=== PATIENT | male | born 1940 | race Caucasian/White ===

== ENCOUNTER 2024-04-27 06:14 | Day surgery (SDC) | payer OTHER, SELFPAY ==
--- NOTE | 2024-04-23 14:08 | PTCARENOTE ---
Patients 5/6 EKG abnormal- reviwed by Dr. Hills- no additional interventions required
[2024-04-27] VITALS (8 sets, daily range): BP systolic 127–175; BP diastolic 56–76; BMI 25.1
[2024-04-27] MEDS: TYLENOL 1000 MG PO (08:05)
[2024-04-27] MEDS: NORMOSOL-R 1000 IV (08:05)
--- NOTE | 2024-04-27 08:40 | W.SUR.PREOP ---
Pre-Operative Surgical Note
-
I have examined this patient prior to the performance of the scheduled procedure.
The patient's condition is unchanged from the time of the current History and
Physical and the patient is able to undergo the scheduled procedure.
--- NOTE | 2024-04-27 11:01 | W.IMMPOSTOP ---
Addendum entered and electronically signed by Robbin Valenzuela MD 04/27/24 14:53:
#[id number]
Original Note:
Surgical Immed Post Op Note
-
Primary Surgeon: Nicolas
Assisting Surgeon: Alfonzo Renee
Pre-op Diagnosis: RIH
Post-op Diagnosis: RIH - indirect
Procedure Performed: Lap TEP RIH repair with mesh - 3D max large
Anesthesia Type: GETA +0.25% Marcaine
Specimen / Cultures: None
Estimated Blood Loss: 14 mL
Complications: None immediate
Operative Findings: Large/moderate size right indirect inguinal hernia. Direct and femoral spaces normal. Scarring within preperitoneal location related to previous history of laparotomy extending typical operative time. No peritoneal entry
visualized with dissection. 3D max large mid weight mesh repair.
[2024-04-27] MEDS: MOTRIN 600 MG PO (12:34)
== END 2024-04-27 13:15 | disposition home or self-care (01) ==
LOC: SDS 06:14
PROVIDERS: ATTENDING PHYSICIAN Surgery
DX: K40.90 Unilateral inguinal hernia, without obstruction or gangrene, not specified as recurrent (principal)
CPT/HCPCS: 49505; C1781

== ENCOUNTER 2024-05-07 11:27 | Emergency (ER) | payer OTHER, SELFPAY ==
[2024-05-07 11:37] VITALS: BP 141/79
[2024-05-07 11:51] LABS: Urine Albumin 2+ (Neg - Trace); Urine Bilirubin Negative (Negative); Urine Character Clear (Clear); Urine Color Yellow; Urine Glucose Negative (Negative); Urine Ketone Negative (Negative); Urine Leukocyte 2+ (Negative); Urine Nitrite Negative (Negative); Urine Occult Blood 4+ (Negative); Urine Urobilinogen Negative (Neg - 1+)
[2024-05-07 11:58] VITALS: BMI 26.7
[2024-05-07 11:59] LABS: Urine Bacteria Few (Negative); Urine Red Blood Cell 30-40 /HPF (0-2); Urine Squamous Cell 0-2 /LPF (Few)
--- NOTE | 2024-05-07 12:33 | ED.GENMED ---
History of Present Illness
<Magy Copeland PA-C - Last Filed: 05/07/24 19:06>
General
Chief Complaint: Male Genito-Urinary Symptoms
Source: patient
Exam Limitations: none
Time Seen by Provider: 05/07/24 11:45
Nursing documentation reviewed up to this point in time: agreed with
History of Present Illness
History of Present Illness:
Patient is an 84-year-old male with history of hypertension, hyperlipidemia presenting to the emergency department 10 days postop from right inguinal hernia repair with Dr. Valenzuela for evaluation of hematuria and urinary frequency. Patient states
that he had been recovering well from surgery until yesterday evening he noticed urinary frequency and hematuria. Patient did speak with Dr. Valenzuela this morning who recommended that he come to the emergency department for evaluation. Patient
denies any fever, chills, dysuria, or abdominal pain. Patient states he is having normal bowel movements denies any blood in his stool. Patient denies any lightheadedness, dizziness. Patient states he overall feels well.
Patient is on any blood thinners. He has postop follow-up scheduled with Dr. Valenzuela on 05/16
Review of Systems
<Magy Copeland PA-C - Last Filed: 05/07/24 19:06>
Review of Systems
Allergies reviewed?: Yes
All Other Systems: ROS reviewed and negative except as documented in HPI and ROS
Phy Exam
<Magy Copeland PA-C - Last Filed: 05/07/24 19:06>
Physical Exam
Physical Exam:
Vitals: Patient's vital signs are stable. Afebrile
General: Patient is well appearing, no acute distress
Skin: Warm and dry, no rashes or lesions
Head: Normocephalic, atraumatic
Eyes: Sclera nonicteric. EOMs intact. No nystagmus.
Throat: Protecting airway
Neck: Normal ROM, no cervical spine tenderness, no meningismus
Cardiac: Regular rate and rhythm, no murmurs.
Pulm: Normal respiratory effort, no wheezes, rales, rhonchi heard on exam.
Abdomen: Abdomen soft. No abdominal tenderness. Few well-healing surgical port sites without any surrounding erythema or drainage.
: Ecchymoses noted to scrotum without any tenderness. No obvious lacerations or bleeding from urethral meatus
Extremities: No evidence of cyanosis or edema. Great distal pulses
Neuro: AAOx3. CN II-XII intact. No focal neurologic deficits.
Psychiatric: Normal affect.
Course
<Magy Copeland PA-C - Last Filed: 05/07/24 19:06>
Orders/Labs/Results
Orders:
Orders
05/07/24 11:37
Urinalysis Reflex To Culture Urgent
Date Specimen was Collected: 05/07/24
Time Specimen was Collected: 11:31
Urine Microscopic Reflex Cult Urgent
Urine Culture Urgent
NAJMA Source: U
Specimen Description:
Date Specimen was Collected: 05/07/24
Time Specimen was Collected: 11:31
05/07/24 12:34
Bladder Scan- Treatment ONCE
05/07/24 12:52
Complete Blood Count/With Diff Urgent
Comprehensive Metabolic Panel Urgent
05/07/24 13:47
Cefdinir [Omnicef] 300 mg PO NOW STA
Abnormal Lab Results
05/07/24 05/07/24
11:37 12:52
WBC 13.8 H 10^3/uL
(4.8-10.8)
Abs Immat Gran (auto) 0.1 H 10^3/uL
(0-0.05)
Absolute Neuts (auto) 10.4 H 10^3/uL
(1.4-6.5)
Absolute Monos (auto) 1.3 H 10^3/uL
(0.1-0.6)
Lymphocytes % 14.1 L %
(20.5-51.1)
Glucose 103 H mg/dl
(70-99)
Ur Occult Blood Reflex 4+ A
(Negative)
Leukocyte Esterase Rfl 2+ A
(Negative)
Urine RBC 30-40 A /HPF
(0-2)
Urine Bacteria (Reflex) Few A
(Negative)
Urine Albumin (Reflex) 2+ A
(Neg - Trace)
05/07/24 12:52
05/07/24 12:52
Vital Signs
Initial and Last Documented VS:
Initial Vital Signs
Temp Pulse Resp BP Pulse Ox
98.7 F 85 18 141/79 94
05/07/24 11:37 05/07/24 11:37 05/07/24 11:37 05/07/24 11:37 05/07/24 11:37
Last Documented Vital Signs
Temp Pulse Resp BP Pulse Ox
97.6 F 86 15 120/75 99
05/07/24 14:41 05/07/24 14:41 05/07/24 14:41 05/07/24 14:41 05/07/24 14:41
<Con Monroe, DO - Last Filed: 05/07/24 13:46>
Orders/Labs/Results
Orders:
Orders
05/07/24 11:37
Urinalysis Reflex To Culture Urgent
Date Specimen was Collected: 05/07/24
Time Specimen was Collected: 11:31
Urine Microscopic Reflex Cult Urgent
Urine Culture Urgent
NAJMA Source: U
Specimen Description:
Date Specimen was Collected: 05/07/24
Time Specimen was Collected: 11:31
05/07/24 12:34
Bladder Scan- Treatment ONCE
05/07/24 12:52
Complete Blood Count/With Diff Urgent
Comprehensive Metabolic Panel Urgent
05/07/24 13:47
Cefdinir [Omnicef] 300 mg PO NOW STA
Abnormal Lab Results
05/07/24 05/07/24
11:37 12:52
WBC 13.8 H 10^3/uL
(4.8-10.8)
Abs Immat Gran (auto) 0.1 H 10^3/uL
(0-0.05)
Absolute Neuts (auto) 10.4 H 10^3/uL
(1.4-6.5)
Absolute Monos (auto) 1.3 H 10^3/uL
(0.1-0.6)
Lymphocytes % 14.1 L %
(20.5-51.1)
Glucose 103 H mg/dl
(70-99)
Ur Occult Blood Reflex 4+ A
(Negative)
Leukocyte Esterase Rfl 2+ A
(Negative)
Urine RBC 30-40 A /HPF
(0-2)
Urine Bacteria (Reflex) Few A
(Negative)
Urine Albumin (Reflex) 2+ A
(Neg - Trace)
05/07/24 12:52
05/07/24 12:52
Vital Signs
Initial and Last Documented VS:
Initial Vital Signs
Temp Pulse Resp BP Pulse Ox
98.7 F 85 18 141/79 94
05/07/24 11:37 05/07/24 11:37 05/07/24 11:37 05/07/24 11:37 05/07/24 11:37
Last Documented Vital Signs
Temp Pulse Resp BP Pulse Ox
97.6 F 86 15 120/75 99
05/07/24 14:41 05/07/24 14:41 05/07/24 14:41 05/07/24 14:41 05/07/24 14:41
<Magy Copeland PA-C - Last Filed: 05/07/24 19:06>
MDM/Problems Addressed
Differential Diagnosis Includes:
Not limited to: Urinary retention, UTI, normal postoperative complication
MDM/Problems Addressed:
84-year-old male postop day 10 from right laparoscopic inguinal hernia repair presents to emergency department with urinary frequency and hematuria. No fever, chills, abdominal pain. Surgery performed laparoscopically with Dr. Valenzuela. Patient
was recovering well until yesterday noticed urinary frequency and hematuria�spoke with Dr. Valenzuela who recommended ER evaluation to rule out urinary retention/UTI. Patient is hypertensive, otherwise vital signs stable on arrival. Physical exam as
above. Patient is nontoxic-appearing. Abdomen is soft and nontender with well-healing port sites without any signs of infection. No signs of active bleeding from urethral meatus or lacerations. Ecchymosis noted to scrotum although nontender and
are improving per patient. Bladder scanned was performed by nurse which showed no urinary retention. Labs were obtained which are notable for mild leukocytosis of 13.8, otherwise no clinically significant abnormalities. Urinalysis is somewhat
equivocal for UTI positive for blood and leukocyte esterase although not many WBCs. Urine culture will be sent.
Did discuss with Dr. Valenzuela, general surgeon. Given patient's mild leukocytosis and urinary frequency�will start patient on course of oral antibiotics for suspected UTI. Will send prescription for Flomax, as well. First dose given in emergency
department today. Patient does have a follow-up scheduled for early May with his urologist which she will keep and follow-up with.
Dr. Valenzuela was down to evaluate patient at bedside. He agrees with plan. Patient will be discharged with close return precautions, general surgery/urology follow-up.
Chronic conditions affecting care:
Hypertension
Acute Exacerbation and/or Progression of Chronic Illness:
Acute hypertensive
<Magy Copeland PA-C - Last Filed: 05/07/24 19:06>
*Pulse Oximetry
Patient hypoxic: no
*EKG
Interpreted by ED Provider?: NA
*Manager Steel Interpretation
Rate: Manager Steel- N/A
*Critical Care Note
Total Time (30-74mins, 75-104mins- exclusive of procedures): Not Applicable
ED Attending Note
<Magy Copeland PA-C - Last Filed: 05/07/24 19:06>
-
Portions of this chart may have been created with voice recognition software.� Occasional wrong word or��sound alike� substitutions may have occurred due to the inherent limitations of voice recognition software.
<Con Monroe DO - Last Filed: 05/07/24 13:46>
ED Attending Note
Patient seen and examined by attending physician: Yes
I performed the substantive portion of visit, reviewed & personally made and approve the management plan that is documented in note by myself or SANDHYA.: Yes
ED Attending Note:
seen with Pa, agree with a/p, non toxic male, urinary frequency, not retaining
Discharge Plan
Departure
Patient Disposition: Home (Routine Discharge)
Date of Disposition: 05/07/24
Time of Disposition: 14:37
Patient with high blood pressure during this ER visit?: No
Condition: Good
Covid-19: Not Applicable
Discharge Problem:
Acute UTI, Hematuria
Instructions: Urinary Tract Infection, Adult ED, Blood in Urine (Hematuria), Adult ED
Prescriptions:
New
cefdinir 300 mg capsule
300 mg PO BID 7 Days Qty: 14 0RF
tamsulosin [Flomax] 0.4 mg capsule
0.4 mg PO DAILY Qty: 14 0RF
No Action
aspirin 81 MG tablet,delayed release (DR/EC)
81 mg PO DAILY
zinc gluconate 30 MG tablet
30 - 50 mg PO DAILY
levothyroxine [Synthroid] 50 MCG tablet
50 mcg PO DAILY
calcium polycarbophil [Fiber-Tabs] 625 MG tablet
2 tab PO DAILY
omeprazole 20 MG capsule,delayed release(DR/EC)
20 mg PO DAILY
cholecalciferol (vitamin D3) 2,000 UNITS tablet
4,000 units PO HS
atorvastatin 20 mg Tablet
20 mg PO DAILY
amlodipine-benazepril 10-40 mg Capsule
1 cap PO HS
omega 5-wbp-poo-fish oil [Fish Oil] 1,200 (144-216) mg Capsule
1 cap PO DAILY
tramadol 50 mg tablet
50 mg PO Q6HPRN PRN (Reason: severe pain/breakthrough pain) Qty: 7 0RF
acetaminophen [Tylenol Extra Strength] 500 mg tablet
1,000 mg PO Q6HPRN PRN (Reason: mild pain) Qty: 1 0RF
ibuprofen 200 mg tablet
400 mg PO Q6HPRN PRN (Reason: moderate pain) Qty: 1 0RF
polyethylene glycol 3350 [Miralax] 17 gram/dose powder
4 g PO DAILY PRN (Reason: Constipation) Qty: 119 0RF
Rx Instructions:
start a laxative such as MIRALAX on day 2 after surgery if no bowel movement yet as long as no nausea/vomiting and passing gas
Referrals:
Qasim Chaves MD [Family Provider] -
Robbin Valenzuela MD [Active] - Keep scheduled appt
Activity Restrictions/Additional Instructions:
RETURN TO THE EMERGENCY DEPARTMENT WITH ANY FEVERS, CHILLS, SEVERE ABDOMINAL PAIN, SEVERE BACK PAIN, PERSISTENT BLOOD IN URINE, INABILITY TO URINATE, WORSENING IN CURRENT SYMPTOMS, OR ANY OTHER CONCERNS
-A prescription has been sent for an antibiotic for urinary tract infection. You should take this twice a day for the next 1 week. You were given your first dose in the emergency department today. You can also take the Flomax once a day. I have
sent a 2-week supply
-As discussed�it is important to follow-up with urology for further evaluation/management. You can keep your scheduled appointment for May or see if they can move it up a few weeks
-You should also keep your appointment with your general surgeon to follow-up at the end of April.
Monitor your symptoms closely return to the emergency department with any acute worsening/new symptom
Interventions
Interventions:
*Risk Screen - Suicide Last Done: 05/07/24 11:37
*General Assessment Last Done: 05/07/24 11:37
*Neglect/Abuse Screening Last Done: 05/07/24 11:37
ED- Fall Risk Assessment Last Done: 05/07/24 11:58
*ED COVID-19 Vaccine History Last Done: 05/07/24 11:37
*Nursing Disposition Last Done: 05/07/24 14:49
ED-Male Genitourinary Assessment Last Done: 05/07/24 11:58
Discharge Date and Time
Discharge Date/Time: 05/07/24 14:54
Print Language: IRISH
[2024-05-07 12:51] VITALS: BP 150/74
[2024-05-07 13:04] LABS: % Basophils 0.3 % (0-2); % Eosinophils 0.7 % (0-6); % Immature Granulocytes 0.5 % (0-0.5); % Lymphocytes 14.1 % (20.5-51.1); % Monocytes 9.2 % (1.7-9.3); % Neutrophils 75.2 % (42.2-75.2); Absolute Eosinophils 0.1 10^3/uL (0-0.7); Absolute Immature Granulocytes 0.1 10^3/uL (0-0.05); Absolute Lymphocytes 1.9 10^3/uL (1.2-3.4); Absolute Monocytes 1.3 10^3/uL (0.1-0.6); Absolute Neutrophils 10.4 10^3/uL (1.4-6.5); Hematocrit 42.2 % (39.0-52.0); Hemoglobin 14.5 g/dL (13.0-18.0); Mean Corp Hgb Conc. 34.4 g/dL (33.0-37.0); Mean Corpuscular Hgb 29.9 pg (27.0-31.0); Mean Platelet Volume 8.6 fL (7.4-10.4); Nucleated Red Blood Cells % 0 % (-); Platelet Count 361 10^3/uL (130-400); Red Blood Cell Count 4.85 10^6/uL (4.70-6.10); Red Cell Dist. Width 13.1 % (11.5-14.5); White Blood Cell Count 13.8 10^3/uL (4.8-10.8)
[2024-05-07 13:12] LABS: ALT (SGPT) 21 U/L (0-50); AST (SGOT) 29 U/L (17-59); Albumin 3.9 g/dl (3.5-5.0); Alkaline Phosphatase 83 U/L (38-126); Blood Urea Nitrogen 20 mg/dl (9-20); Calcium 9.8 mg/dl (8.4-10.2); Carbon Dioxide 27 mmol/L (22-30); Chloride 102 mmol/L (98-107); Estimated Creatinine Clearance 62 ml/min; Glucose 103 mg/dl (70-99); Potassium 4.7 mmol/L (3.5-5.1); Sodium 137 mmol/L (135-145); Total Bilirubin 0.4 mg/dl (0.2-1.3); Total Protein 6.7 g/dl (6.3-8.2); eGFR > 60.00
[2024-05-07 13:26] VITALS: BP 125/86
[2024-05-07 14:41] VITALS: BP 120/75
[2024-05-07] MEDS: OMNICEF 300 MG PO (14:47)
== END 2024-05-07 14:54 | disposition home or self-care (01) ==
LOC: EMR 11:27
PROVIDERS: Emergency Medicine; Physician Assistant; EMERGENCY PHYSICIAN Emergency Medicine; FAMILY PHYSICIAN Internal Medicine
DX: N39.0 Urinary tract infection, site not specified (principal); R31.9 Hematuria, unspecified; I10 Essential (primary) hypertension; E78.5 Hyperlipidemia, unspecified; E03.9 Hypothyroidism, unspecified; Z98.890 Other specified postprocedural states; Z79.82 Long term (current) use of aspirin; Z85.46 Personal history of malignant neoplasm of prostate; Z92.3 Personal history of irradiation; Z87.891 Personal history of nicotine dependence
CPT/HCPCS: 99283; 51798; 80053; 81003; 81015; 85025; 87086